=== PATIENT | female | born 1995 | race Caucasian/White ===

== ENCOUNTER → 2016-06-04 10:00 | Emergency (ER) | payer OTHER ==
[~2016-06-04 10:00] MED LIST: Ketorolac INJ* 30 MG/ML 1 ML VIAL IV ONE; Metoclopramide IV* 5 MG/ML 2 ML VIAL IV ONE; NS 0.9% 1000 ML* 1,000 ML IV ONE; diPHENhydraMINE IV* 50 MG/ML 1 ml VIAL (BENADRYL) IV ONE
--- NOTE | 2016-06-04 12:04 | ED ---
Russ, DoctorAvelina, scribed for Kavon Lemons MD on 06/04/16 at 1021 . Headache - HPI Summary HPI Summary: 20 year old female arrived to [facility] c/o migraine beginning last night, with photophobia and soreness down the spine and throat. Her migraine begins in the center of the forehead, and is described as a "pounding" pain. She also reports nausea, abdominal pain, and coughing for the past two days; denies any vomiting. She took Imitrex last night, but her symptoms were unchanged. She has a PMHx of migraines and regularly experiences 2-3 migraines/year. She is a student and does not have a PCP in the area. - History Of Current Complaint Chief Complaint: EDHeadache Stated Complaint: HEADACHE Time Seen by Provider: 06/04/16 10:12 Hx Obtained From: Patient Onset/Duration: Gradual Onset, Started days ago Character: Migraine - pounding Aggravating Factor: Bright Lights Associated Signs And Symptoms: Nausea, Other (Noted In Comments) - abdominal pain, sore throat, coughing, photophobia, soreness in spine - Allergies/Home Medications Allergies/Adverse Reactions: Allergies Allergy/AdvReac Type Severity Reaction Status Date / Time No Known Allergies Allergy Verified 06/04/16 11:01 PMH/Surg Hx/FS Hx/Imm Hx Neurological History: Reports: Hx Migraine Infectious Disease History: Denies: Traveled Outside the [place] in Last 30 Days - Family History Known Family History: Negative: Hypertension, Diabetes - Social History Occupation: Student Alcohol Use: Rare Substance Use Type: Reports: None Smoking Status (MU): Never Smoked Tobacco Review of Systems Negative: Fever Positive: Photophobia Positive: Sore Throat Positive: Cough Positive: Abdominal Pain, Nausea. Negative: Vomiting Positive: Other - soreness down the spine Positive: Headache All Other Systems Reviewed And Are Negative: Yes Physical Exam Triage Information Reviewed: Yes Vital Signs On Initial Exam: Initial Vitals Temp Pulse Resp BP Pulse Ox 98.2 F 76 18 142/72 99 06/04/16 10:05 06/04/16 10:05 06/04/16 10:05 06/04/16 10:05 06/04/16 10:05 Vital Signs Reviewed: Yes Appearance: Positive: Well-Appearing, No Pain Distress Skin: Positive: Warm, Skin Color Reflects Adequate Perfusion, Dry Head/Face: Positive: Normal Head/Face Inspection Eyes: Positive: Normal ENT: Positive: Normal ENT inspection Neck: Positive: Supple. Negative: Nontender, No Lymphadenopathy - mild anterior cervical lymphadenopathy Respiratory/Lung Sounds: Positive: Clear to Auscultation, Breath Sounds Present Cardiovascular: Positive: RRR Abdomen Description: Positive: Nontender, Soft Bowel Sounds: Positive: Present Musculoskeletal: Positive: Normal Neurological: Positive: Normal Psychiatric: Positive: Normal Diagnostics - Vital Signs Vital Signs Temp Pulse Resp BP Pulse Ox 06/04/16 10:05 98.2 F 76 18 142/72 99 - Laboratory Lab Results: Lab Results 06/04/16 Range/Units 10:04 Group A Strep Rapid Negative (Negative) Lab Statement: Any lab studies that have been ordered have been reviewed, and results considered in the medical decision making process. Headache Course/Dx - Course Course Of Treatment: Ms. Gold came in C/O a 'migraine' which certainly sounded like one and improved with toradol, benadryl and reglan with IV fluids. She has also had a vague sore throat for a few days and a strep was negative. - Diagnoses Provider Diagnoses: Migraine headache, Pharyngitis Discharge - Discharge Plan Condition: Stable Disposition: HOME Patient Education Materials: Migraine Headache (ED), Pharyngitis (ED) The documentation as recorded by the Doctor acosta Tahera accurately reflects the service I personally performed and the decisions made by me, Kavon Lemons MD.
[2016-06-04 12:08] VITALS: BP 108/57
== END | disposition home or self-care (01) ==
LOC: ED 10:00
DX: G43.909 Migraine, unspecified, not intractable, without status migrainosus (principal); J02.9 Acute pharyngitis, unspecified
CPT/HCPCS: 87651; 96360; 96374; 96375; 99283; J1200; J1885